=== PATIENT | male | born 1980 | race Two or more races ===

== ENCOUNTER 2018-08-18 23:00 | Inpatient (IN) | payer SELFPAY ==
[~2018-08-18] VITALS: Ht 170.2 cm; Wt 64.4 kg
[2018-08-19] MEDS ORDERED: IV NORMAL SALINE 1000ML BAG 1,000 ML IV ONE (01:15)
[2018-08-19] MEDS ORDERED: fentaNYL PF VIAL 100 MCG/2 ML VIAL IV ONE (01:15)
--- NOTE | 2018-08-19 01:24 | PHYS DOC ---
Past Medical History Past Medical History: No Pertinent History, Diabetes-Type II (Reports being told 2 years ago at hospital, has not taken treatment for it.) Past Surgical History: No Surgical History Smokin Pack Per Day Alcohol Use: Occasionally Drug Use: None Adult General Chief Complaint Chief Complaint: ABDOMINAL PAIN HPI HPI Patient is a 38 year old lithuanian-speaking male, who immigrated from [facility], presents with abdominal pain. He reports abdominal pain onset 2 weeks ago that was located in his epigastric/LUQ area. Today he experienced sudden worsening of his pain and now reports additional pain located in his LLQ and back, w/out CVA tenderness. He describes his pain as squeezing/sharp and rates it a 10/10. He reports his last BM was at 20:00 today and was "normal" for him, and he has experienced flatulence since then. He denies n/v, blood in stool, diarrhea, hematuria, dysuria, constipation, fever/chills, SOB, chest pain, and BATES. 2 years ago the patient reports having been told he had diabetes while hospitalized. He did not seek treatment for it and takes no medications for it. Review of Systems Review of Systems Constitutional: Denies fever or chills Eyes: Denies change in visual acuity, redness, or eye pain HENT: Denies nasal congestion or sore throat Respiratory: Denies cough or shortness of breath Cardiovascular: No additional information not addressed in HPI GI: Admits to abdominal pain. Denies nausea, vomiting, bloody stools or diarrhea : Denies dysuria or hematuria Musculoskeletal:Admits to back pain in the lumbar region Integument: Denies rash or skin lesions All other systems were reviewed and found to be within normal limits, except as documented in this note. Current Medications Current Medications Current Medications Medications (Trade) Dose Ordered Sig/Jeffery Start Time Stop Time Status Last Admin Dose Admin Fentanyl Citrate (Fentanyl 2ml Vial) 50 mcg 1X ONCE 08/19/18 01:15 08/19/18 01:16 DC 08/19/18 01:11 50 MCG Info (CONTRAST GIVEN -- Rx MONITORING) 1 each PRN DAILY PRN 08/19/18 01:30 08/21/18 01:29 Insulin Human Regular (HumuLIN R VIAL) 10 unit 1X ONCE 08/19/18 02:30 08/19/18 02:31 DC 08/19/18 02:39 10 UNIT Iohexol (Omnipaque 300 Mg/ml) 75 ml 1X ONCE 08/19/18 01:30 08/19/18 01:31 DC 08/19/18 02:00 75 ML Morphine Sulfate (Morphine Sulfate) 4 mg PRN Q2HR PRN 08/19/18 02:30 08/20/18 02:29 Ondansetron HCl (Zofran) 4 mg PRN Q8HRS PRN 08/19/18 02:30 08/20/18 02:29 Sodium Chloride 1,000 ml @ 125 mls/hr Q8H 08/19/18 02:15 08/20/18 02:14 Allergies Allergies Allergies Coded Allergies Type Severity Reaction Last Updated Verified No Known Drug Allergies 08/19/18 No Physical Exam Physical Exam Constitutional: Well developed, well nourished, mild distress, non-toxic appearance. HENT: Normocephalic, atraumatic, bilateral external ears normal, oropharynx moist, no oral exudates, nose normal. Eyes: PERRLA, EOMI, conjunctiva normal, no discharge. Neck: Normal range of motion, no tenderness, supple, no stridor. Cardiovascular:Heart rate regular rhythm, no murmur Lungs & Thorax: Bilateral breath sounds clear to auscultation Abdomen: Hypoactive Bowel sounds present in all 4 quadrants, soft, TTP in epigastrium, LUQ, and LLQ, tenderness most severe in LLQ. Skin: Warm, dry, no erythema, no rash. Back: Tenderness at Lumbar spine, no CVA tenderness. Extremities: No tenderness, no cyanosis, no clubbing, ROM intact, no edema. [] Current Patient Data Vital Signs Vital Signs Date Time Temp Pulse Resp B/P (MAP) Pulse Ox O2 Delivery O2 Flow Rate FiO2 08/19/18 01:11 16 08/18/18 23:56 98.0 81 122/80 (94) 96 98.0 Lab Values Laboratory Tests Test 08/19/18 00:30 White Blood Count 5.3 x10^3/uL (4.0-11.0) Red Blood Count 4.34 x10^6/uL (4.30-5.70) Hemoglobin 13.5 g/dL (13.0-17.5) Hematocrit 39.9 % (39.0-53.0) Mean Corpuscular Volume 92 fL (79-100) Mean Corpuscular Hemoglobin 31 pg (25-35) Mean Corpuscular Hemoglobin Concent 34 g/dL (31-37) Red Cell Distribution Width 12.1 % (11.5-14.5) Platelet Count 281 x10^3/uL (140-400) Neutrophils (%) (Auto) 67 % (31-73) Lymphocytes (%) (Auto) 26 % (24-48) Monocytes (%) (Auto) 6 % (0-9) Eosinophils (%) (Auto) 1 % (0-3) Basophils (%) (Auto) 0 % (0-3) Neutrophils # (Auto) 3.6 x10^3uL (1.8-7.7) Lymphocytes # (Auto) 1.4 x10^3/uL (1.0-4.8) Monocytes # (Auto) 0.3 x10^3/uL (0.0-1.1) Eosinophils # (Auto) 0.0 x10^3/uL (0.0-0.7) Basophils # (Auto) 0.0 x10^3/uL (0.0-0.2) Urine Collection Type Unknown Urine Color Yellow Urine Clarity Clear Urine pH 7.5 Urine Specific [place] >=1.030 Urine Protein Negative mg/dL (NEG-TRACE) Urine Glucose (UA) >=1000 mg/dL (NEG) Urine Ketones (Stick) 15 mg/dL (NEG) Urine Blood Negative (NEG) Urine Nitrite Negative (NEG) Urine Bilirubin Negative (NEG) Urine Urobilinogen Dipstick 0.2 mg/dL (0.2 mg/dL) Urine Leukocyte Esterase Negative (NEG) Urine RBC 0 /HPF (0-2) Urine WBC 0 /HPF (0-4) Urine Squamous Epithelial Cells None /LPF Urine Bacteria 0 /HPF (0-FEW) Sodium Level 133 mmol/L (136-145) L Potassium Level 4.5 mmol/L (3.5-5.1) Chloride Level 94 mmol/L (98-107) L Carbon Dioxide Level 29 mmol/L (21-32) Anion Gap 10 (6-14) Blood Urea Nitrogen 13 mg/dL (8-26) Creatinine 0.7 mg/dL (0.7-1.3) Estimated GFR (Cockcroft-Gault) 124.9 BUN/Creatinine Ratio 19 (6-20) Glucose Level 664 mg/dL (70-99) *H Calcium Level 9.0 mg/dL (8.5-10.1) Total Bilirubin 0.2 mg/dL (0.2-1.0) Aspartate Amino Transferase (AST) 45 U/L (15-37) H Alanine Aminotransferase (ALT) 68 U/L (16-63) H Alkaline Phosphatase 81 U/L (46-116) Troponin I Quantitative < 0.017 ng/mL (0.000-0.055) Total Protein 6.7 g/dL (6.4-8.2) Albumin 3.8 g/dL (3.4-5.0) Albumin/Globulin Ratio 1.3 (1.0-1.7) Lipase 927 U/L (73-393) H Urine Opiates Screen Neg (NEG) Urine Methadone Screen Neg (NEG) Urine Barbiturates Neg (NEG) Urine Phencyclidine Screen Neg (NEG) Urine Amphetamine/Methamphetamine Neg (NEG) Urine Benzodiazepines Screen Neg (NEG) Urine Cocaine Screen Neg (NEG) Urine Cannabinoids Screen Neg (NEG) Ethyl Alcohol Level < 10 mg/dL (0-10) Urine Ethyl Alcohol Neg (NEG) Laboratory Tests 08/19/18 00:30 Laboratory Tests 08/19/18 00:30 EKG EKG Normal sinus rhythm rate of 83 no acute ischemic changes noted some borderline ST changes noted inferiorly but no STEMI was seen interpreted by me time of encounter[] Radiology/Procedures Radiology/Procedures [] Impressions: MPRESSION: 1. Large amount of colonic stool burden, patient may be constipated. 2. Distended stomach with ingested food. Clinically correlate with recent ingestion of large meal or gastroparesis. Electronically signed by: Ishan Lazcano DO (08/19/2018 2:44 AM) [facility] DICTATED and SIGNED BY: ISHAN LAZCANO DO DATE: 08/19/18243 Course & Med Decision Making Course & Med Decision Making 38 yo M from [facility] with no reported medical history other than untreated diabetes diagnosed 2 years ago presents with abdominal pain. The pain has been present for 2 weeks but has abruptly became worse earlier today. The pain is rated a 10/10 and he is TTP in epigastrium, LUQ, LLQ. He denies ever experiencing similar symptoms in the past. He denies n/v, diarrhea, constipation , blood in stool, dysuria, fever/chills, and BATES. He has passed bhargavi and had a bowel movement less than 3 hours ago. Ddx Diverticulitis SBO LBO Pancreatitis Cholecystitis PUD Workup CT abd/pelvis EKG CMP CBC Fingerstick glucose LFT's Lipase final plan: pancreatitis, probable gastroparesis, poorly controlled diabetes actually uncontrolled, no dka. admit to [facility] per usual protocol. well Nelli Disclaimer Nelli Disclaimer This electronic medical record was generated, in whole or in part, using a voice recognition dictation system. Departure Departure Impression: Primary Impression: Hyperglycemia Additional Impression: Pancreatitis Disposition: 09 ADMITTED INPATIENT Admitting Physician: Marianela Shankar Condition: STABLE Problem Qualifiers RADHA CHAO MD Aug 19, 2018 01:24
[2018-08-19 01:26] LABS: BASO % 0 % (0-3); EOS % 1 % (0-3); HEMATOCRIT 39.9 % (39.0-53.0); HEMOGLOBIN 13.5 g/dL (13.0-17.5); LYMPH # 1.4 x10^3/uL (1.0-4.8); LYMPH % 26 % (24-48); MEAN CORPUSCULAR HEMOGLOBIN 31 pg (25-35); MEAN CORPUSCULAR HGB CONC 34 g/dL (31-37); MEAN CORPUSCULAR VOLUME 92 fL (79-100); MONO # 0.3 x10^3/uL (0.0-1.1); MONO % 6 % (0-9); NEUT # 3.6 x10^3uL (1.8-7.7); NEUT % 67 % (31-73); PLATELET COUNT 281 x10^3/uL (140-400); RED BLOOD COUNT 4.34 x10^6/uL (4.30-5.70); RED CELL DISTRIBUTION WIDTH 12.1 % (11.5-14.5); WHITE BLOOD COUNT 5.3 x10^3/uL (4.0-11.0)
[2018-08-19 01:27] LABS: BILIRUBIN,URINE NEGATIVE (NEG); CLARITY,URINE CLEAR; COLOR,URINE YELLOW; NITRITE,URINE NEGATIVE (NEG); PH,URINE 7.5; PROTEIN,URINE NEGATIVE (NEG-TRACE); UROBILINOGEN,URINE 0.2 mg/dL (0.2 mg/dL)
[2018-08-19 01:30] LABS: BARBITURATES NEG (NEG); BENZODIAZEPINES NEG (NEG); CANNABINOIDS NEG (NEG); COCAINE NEG (NEG); METHADONE NEG (NEG); OPIATES NEG (NEG); PHENCYCLIDINE NEG (NEG)
[2018-08-19] MEDS ORDERED: CONTRAST GIVEN. MC PRN (01:30)
[2018-08-19] MEDS ORDERED: IOHEXOL 300 MG/ML 100ML VIAL. IV ONE (01:30)
[2018-08-19 01:34] LABS: AMPHETAMINE/METHAMPHETAMINE NEG (NEG)
[2018-08-19 01:41] LABS: BACTERIA,URINE 0 /HPF (0-FEW); RBC,URINE 0 /HPF (0-2); WBC,URINE 0 /HPF (0-4)
[2018-08-19 01:47] LABS: ALBUMIN 3.8 g/dL (3.4-5.0); ALBUMIN/GLOBULIN RATIO 1.3 (1.0-1.7); CREATININE 0.7 mg/dL (0.7-1.3); GFR 124.9; POTASSIUM 4.5 mmol/L (3.5-5.1); TOTAL BILIRUBIN 0.2 mg/dL (0.2-1.0); TOTAL PROTEIN 6.7 g/dL (6.4-8.2)
[2018-08-19] MEDS ORDERED: MORPHINE SULFATE 4 MG/ML VIAL. IV PRN (02:30)
[2018-08-19] MEDS ORDERED: INSULIN REGULAR 100 UNIT/ML 3ML VIAL. IV ONE (02:30)
[2018-08-19] MEDS ORDERED: ONDANSETRON PF 4 MG/2 ML VIAL. IV PRN (02:30)
--- NOTE | 2018-08-19 02:47 | RAD ---
PQRS Compliance statement: One or more of the following individualized dose reduction techniques were utilized for this examination: 1. Automated exposure control. 2. Adjustment of the mA and/or kV according to patient size. 3. Use of iterative reconstruction technique. Indication:luq, llq pain; Omni 300, 75ml TECHNIQUE: CT abdomen and pelvis with IV contrast with multiplanar reformats. COMPARISON: None FINDINGS: Heart is normal in size. No pericardial or pleural effusion. 3 mm nodule in the right middle lobe. Otherwise, clear lung bases. Liver, spleen, gallbladder, pancreas, adrenals and kidneys within normal limits. No free pelvic fluid or ascites. Large amount of colonic stool burden. No abnormally dilated bowel loops. Large amount of fluid material is seen in the stomach. No pneumoperitoneum. The prostate and seminal vesicles show no large mass. Urinary bladder is within normal limits. No suspicious bony lesion. IMPRESSION: 1. Large amount of colonic stool burden, patient may be constipated. 2. Distended stomach with ingested food. Clinically correlate with recent ingestion of large meal or gastroparesis. Electronically signed by: Ishan Lazcano DO (08/19/2018 2:44 AM) [facility]
[2018-08-19] MEDS ORDERED: METOCLOPRAMIDE HCL 10 MG/2 ML VIAL. IV ONE (03:00)
--- NOTE | 2018-08-19 03:30 | NUR ---
ADMISSION NOTE: Patient arrived to room 567 via gurney accompanied by family and ED staff. Patient was able to transfer self to bed with ease. Patient has no complaints at this time. Patient's son present to translate admission questionnaire. No IV pump available on unit so drip rate was calculated to be approximately 42 drops per minute. Roller clamp taped to prevent accidental bolus. Will continue to monitor.
[2018-08-19 04:00] VITALS: BP 106/68
[2018-08-19] MEDS: IV NORMAL SALINE 1000ML BAG 1,000 ML IV SCH ×3 (04:34→22:21)
[2018-08-19 07:00] VITALS: BP 110/67
--- NOTE | 2018-08-19 07:11 | EKG ---
[facility] [address] [place] [address] Test Date: 2018-08-19 Test Time: 01:45:26 Pat Name: BINDU HUMPHREY Department: Room: 567 1 Gender: M Marketing Sales Manager: : 1980 Requested By: RADHA CHAO Order Number: [id number] Reading MD: German Cook MD Measurements Intervals [place] Rate: 83 P: 56 GA: 152 QRS: 45 QRSD: 76 T: -20 QT: 344 QTc: 410 Interpretive Statements SINUS RHYTHM ANTEROSEPTAL INFARCT Electronically Signed On 08-27-2018 23:12:50 CDT by German Cook MD
[2018-08-19 10:57] VITALS: BP 104/70
--- NOTE | 2018-08-19 13:01 | NUR ---
SW following for discharge planning. Discussed with RN, pt is from home with and is Tajik speaking. No SW needs at this time. SW will continue to follow.
[2018-08-19] MEDS ORDERED: DEXTROSE 50% 25 GM / 50ML DISP.SYRIN. IV PRN ×2 (13:30→23:45)
--- NOTE | 2018-08-19 13:32 | PDOC1 ---
History and Physical Date of Admission Date of Admission 08/19/2018 Identification/Chief Complaint Chief Complaint Shanta higgins Source Source: Chart review, Patient History of Present Illness History of Present Illness Patient is a 38-year-old gentleman who was diagnosed with diabetes mellitus type 2 approximately 2 years ago. The patient unfortunately does not have medical insurance and has not been able to fill his medications for quite some time now. Yesterday he received a visit in one of his cousins from [place] [facility] and they were grilling meats and he had a beer and later on in the day the patient started suffering from epigastric pain no radiation to the back sharp in nature that started at about 4-5 out of 10 intensity and progressed to 10 out of 10 with swelling of his abdomen nausea no vomiting no hematemesis no diarrhea was reported. The patient did not self medicated at home and due to the gravity of his symptoms he decided to come to the emergency department for further evaluation treatment. He was diagnosed with pancreatitis given the elevation of lipase noted on his laboratory data and his presentation. He has been currently nothing by mouth since yesterday and seems to be much improved he has regained some of his appetite and he is in no acute distress. Lengthy discussion took place and the importance of maintaining a rigors control and his glycemia and establishing care with a physician on a regular basis. I discussed also the long-term complications of the disease process including nontraumatic amputation blindness end-stage renal disease dialysis among others. He acknowledged understanding of all the instructions plan of care explained in detail all his concerns were addressed to the best of my abilities Past Medical History Endocrine: Diabetes Current Medications Current Medications Current Medications Medications (Trade) Dose Ordered Sig/Jeffery Start Time Stop Time Status Last Admin Dose Admin Fentanyl Citrate (Fentanyl 2ml Vial) 50 mcg 1X ONCE 08/19/18 01:15 08/19/18 01:16 DC 08/19/18 01:11 50 MCG Influenza Virus Vaccine (Afluria Trivalent 0827-1465 Syringe) 0.5 ml ONCE ONCE 08/19/18 09:00 08/19/18 09:01 DC Info (CONTRAST GIVEN -- Rx MONITORING) 1 each PRN DAILY PRN 08/19/18 01:30 08/21/18 01:29 Insulin Human Regular (HumuLIN R VIAL) 10 unit 1X ONCE 08/19/18 02:30 08/19/18 02:31 DC 08/19/18 02:39 10 UNIT Iohexol (Omnipaque 300 Mg/ml) 75 ml 1X ONCE 08/19/18 01:30 08/19/18 01:31 DC 08/19/18 02:00 75 ML Metoclopramide HCl (Reglan Vial) 10 mg 1X ONCE 08/19/18 03:00 08/19/18 03:01 DC 08/19/18 04:33 10 MG Morphine Sulfate (Morphine Sulfate) 4 mg PRN Q2HR PRN 08/19/18 02:30 08/20/18 02:29 Ondansetron HCl (Zofran) 4 mg PRN Q8HRS PRN 08/19/18 02:30 08/20/18 02:29 Sodium Chloride 1,000 ml @ 125 mls/hr Q8H 08/19/18 02:15 08/20/18 02:14 08/19/18 04:34 125 MLS/HR Allergies Allergies Allergies Coded Allergies Type Severity Reaction Last Updated Verified No Known Drug Allergies 08/19/18 No ROS Review of System CONSTITUTIONAL: No fever or chills EYES: No recent changes SKIN: No rash or itching CARDIOVASCULAR: No chest pain, syncope, palpitations, or edema RESPIRATORY: No SOB or cough GASTROINTESTINAL: + nausea, no vomiting + abdominal pain NEUROLOGICAL: No headaches or weakness ENDOCRINE: No cold or heat intolerance GENITOURINARY: No urgency or frequency of urination MUSCULOSKELETAL: No back pain or joint pain LYMPHATICS: No enlarged lymph nodes PSYCHIATRIC: No anxiety or depression Physical Exam Physical Exam GEN.: No apparent distress. Alert and oriented. HEENT: Head is normocephalic, atraumatic NECK: Supple. LUNGS: Clear to auscultation. HEART: RRR, S1, S2 present. Peripheral pulses intact ABDOMEN: Soft, nontender. Positive bowel sounds. EXTREMITIES: Without any cyanosis. NEUROLOGIC: Normal speech, normal tone PSYCHIATRIC: Normal affect, normal mood. SKIN: No ulcerations Vitals Vitals Vital Signs Date Time Temp Pulse Resp B/P (MAP) Pulse Ox O2 Delivery O2 Flow Rate FiO2 08/19/18 10:57 98.0 68 18 104/70 (81) 98 Room Air 98.0 Labs Labs Laboratory Tests Test 08/19/18 00:30 08/19/18 05:55 08/19/18 11:58 White Blood Count 5.3 x10^3/uL (4.0-11.0) Red Blood Count 4.34 x10^6/uL (4.30-5.70) Hemoglobin 13.5 g/dL (13.0-17.5) Hematocrit 39.9 % (39.0-53.0) Mean Corpuscular Volume 92 fL (79-100) Mean Corpuscular Hemoglobin 31 pg (25-35) Mean Corpuscular Hemoglobin Concent 34 g/dL (31-37) Red Cell Distribution Width 12.1 % (11.5-14.5) Platelet Count 281 x10^3/uL (140-400) Neutrophils (%) (Auto) 67 % (31-73) Lymphocytes (%) (Auto) 26 % (24-48) Monocytes (%) (Auto) 6 % (0-9) Eosinophils (%) (Auto) 1 % (0-3) Basophils (%) (Auto) 0 % (0-3) Neutrophils # (Auto) 3.6 x10^3uL (1.8-7.7) Lymphocytes # (Auto) 1.4 x10^3/uL (1.0-4.8) Monocytes # (Auto) 0.3 x10^3/uL (0.0-1.1) Eosinophils # (Auto) 0.0 x10^3/uL (0.0-0.7) Basophils # (Auto) 0.0 x10^3/uL (0.0-0.2) Urine Collection Type Unknown Urine Color Yellow Urine Clarity Clear Urine pH 7.5 Urine Specific [place] >=1.030 Urine Protein Negative mg/dL (NEG-TRACE) Urine Glucose (UA) >=1000 mg/dL (NEG) Urine Ketones (Stick) 15 mg/dL (NEG) Urine Blood Negative (NEG) Urine Nitrite Negative (NEG) Urine Bilirubin Negative (NEG) Urine Urobilinogen Dipstick 0.2 mg/dL (0.2 mg/dL) Urine Leukocyte Esterase Negative (NEG) Urine RBC 0 /HPF (0-2) Urine WBC 0 /HPF (0-4) Urine Squamous Epithelial Cells None /LPF Urine Bacteria 0 /HPF (0-FEW) Sodium Level 133 mmol/L (136-145) Potassium Level 4.5 mmol/L (3.5-5.1) Chloride Level 94 mmol/L (98-107) Carbon Dioxide Level 29 mmol/L (21-32) Anion Gap 10 (6-14) Blood Urea Nitrogen 13 mg/dL (8-26) Creatinine 0.7 mg/dL (0.7-1.3) Estimated GFR (Cockcroft-Gault) 124.9 BUN/Creatinine Ratio 19 (6-20) Glucose Level 664 mg/dL (70-99) Calcium Level 9.0 mg/dL (8.5-10.1) Total Bilirubin 0.2 mg/dL (0.2-1.0) Aspartate Amino Transf (AST/SGOT) 45 U/L (15-37) Alanine Aminotransferase (ALT/SGPT) 68 U/L (16-63) Alkaline Phosphatase 81 U/L (46-116) Troponin I Quantitative < 0.017 ng/mL (0.000-0.055) Total Protein 6.7 g/dL (6.4-8.2) Albumin 3.8 g/dL (3.4-5.0) Albumin/Globulin Ratio 1.3 (1.0-1.7) Lipase 927 U/L (73-393) Urine Opiates Screen Neg (NEG) Urine Methadone Screen Neg (NEG) Urine Barbiturates Neg (NEG) Urine Phencyclidine Screen Neg (NEG) Urine Amphetamine/Methamphetamine Neg (NEG) Urine Benzodiazepines Screen Neg (NEG) Urine Cocaine Screen Neg (NEG) Urine Cannabinoids Screen Neg (NEG) Ethyl Alcohol Level < 10 mg/dL (0-10) Urine Ethyl Alcohol Neg (NEG) Glucose (Fingerstick) 387 mg/dL (70-99) 282 mg/dL (70-99) Laboratory Tests Test 08/19/18 00:30 08/19/18 05:55 08/19/18 11:58 White Blood Count 5.3 x10^3/uL (4.0-11.0) Red Blood Count 4.34 x10^6/uL (4.30-5.70) Hemoglobin 13.5 g/dL (13.0-17.5) Hematocrit 39.9 % (39.0-53.0) Mean Corpuscular Volume 92 fL (79-100) Mean Corpuscular Hemoglobin 31 pg (25-35) Mean Corpuscular Hemoglobin Concent 34 g/dL (31-37) Red Cell Distribution Width 12.1 % (11.5-14.5) Platelet Count 281 x10^3/uL (140-400) Neutrophils (%) (Auto) 67 % (31-73) Lymphocytes (%) (Auto) 26 % (24-48) Monocytes (%) (Auto) 6 % (0-9) Eosinophils (%) (Auto) 1 % (0-3) Basophils (%) (Auto) 0 % (0-3) Neutrophils # (Auto) 3.6 x10^3uL (1.8-7.7) Lymphocytes # (Auto) 1.4 x10^3/uL (1.0-4.8) Monocytes # (Auto) 0.3 x10^3/uL (0.0-1.1) Eosinophils # (Auto) 0.0 x10^3/uL (0.0-0.7) Basophils # (Auto) 0.0 x10^3/uL (0.0-0.2) Urine Collection Type Unknown Urine Color Yellow Urine Clarity Clear Urine pH 7.5 Urine Specific [place] >=1.030 Urine Protein Negative mg/dL (NEG-TRACE) Urine Glucose (UA) >=1000 mg/dL (NEG) Urine Ketones (Stick) 15 mg/dL (NEG) Urine Blood Negative (NEG) Urine Nitrite Negative (NEG) Urine Bilirubin Negative (NEG) Urine Urobilinogen Dipstick 0.2 mg/dL (0.2 mg/dL) Urine Leukocyte Esterase Negative (NEG) Urine RBC 0 /HPF (0-2) Urine WBC 0 /HPF (0-4) Urine Squamous Epithelial Cells None /LPF Urine Bacteria 0 /HPF (0-FEW) Sodium Level 133 mmol/L (136-145) Potassium Level 4.5 mmol/L (3.5-5.1) Chloride Level 94 mmol/L (98-107) Carbon Dioxide Level 29 mmol/L (21-32) Anion Gap 10 (6-14) Blood Urea Nitrogen 13 mg/dL (8-26) Creatinine 0.7 mg/dL (0.7-1.3) Estimated GFR (Cockcroft-Gault) 124.9 BUN/Creatinine Ratio 19 (6-20) Glucose Level 664 mg/dL (70-99) Calcium Level 9.0 mg/dL (8.5-10.1) Total Bilirubin 0.2 mg/dL (0.2-1.0) Aspartate Amino Transf (AST/SGOT) 45 U/L (15-37) Alanine Aminotransferase (ALT/SGPT) 68 U/L (16-63) Alkaline Phosphatase 81 U/L (46-116) Troponin I Quantitative < 0.017 ng/mL (0.000-0.055) Total Protein 6.7 g/dL (6.4-8.2) Albumin 3.8 g/dL (3.4-5.0) Albumin/Globulin Ratio 1.3 (1.0-1.7) Lipase 927 U/L (73-393) Urine Opiates Screen Neg (NEG) Urine Methadone Screen Neg (NEG) Urine Barbiturates Neg (NEG) Urine Phencyclidine Screen Neg (NEG) Urine Amphetamine/Methamphetamine Neg (NEG) Urine Benzodiazepines Screen Neg (NEG) Urine Cocaine Screen Neg (NEG) Urine Cannabinoids Screen Neg (NEG) Ethyl Alcohol Level < 10 mg/dL (0-10) Urine Ethyl Alcohol Neg (NEG) Glucose (Fingerstick) 387 mg/dL (70-99) 282 mg/dL (70-99) VTE Prophylaxis Ordered VTE Prophylaxis Devices: Yes VTE Pharmacological Prophylaxi: No Assessment/Plan Assessment/Plan Abdominal pain secondary to pancreatitis Diabetes mellitus type 2 uncontrolled Pseudohyponatremia Plan: Start clear liquid diet challenge Continue IV fluid resuscitation We'll do hemoglobin A1c and lipase in the a.m. We'll start Lantus insulin tonight Sliding scale Further recommendations based on the clinical course RICO LEUNG MD Aug 19, 2018 13:32
[2018-08-19 15:00] VITALS: BP 120/83
[2018-08-19] MEDS ORDERED: INSULIN LISPRO 300 UNITS/3 ML INSULN.PEN. SQ SCH (17:00)
[2018-08-19] MEDS ORDERED: INSULIN LISPRO 300 UNITS/3 ML INSULN.PEN. SQ ONE (17:45)
[2018-08-19 19:10] VITALS: BP 115/68
[2018-08-19] MEDS ORDERED: INSULIN GLARGINE 300 UNITS/3 ML INSULN.PEN. SQ SCH (21:00)
[2018-08-19 23:10] VITALS: BP 112/73
[2018-08-20] MEDS: INSULIN LISPRO 300 UNITS/3 ML INSULN.PEN. SQ SCH ×6 (00:13→12:22)
[2018-08-20 03:10] VITALS: BP 107/73
[2018-08-20 07:00] VITALS: BP 109/73
[2018-08-20 11:00] VITALS: BP 110/76
[2018-08-20] MEDS ORDERED: METF500T16 PO (13:11)
[2018-08-20] MEDS ORDERED: GLYB2.5T2 PO (13:11)
--- NOTE | 2018-08-20 14:05 | PDOC3 ---
Discharge Summary Visit Information Date of Admission: Aug 19, 2018 Date of Discharge: Aug 20, 2018 Admitting Diagnosis: acute pancreatitis Final Diagnosis Acute pancreatitis DM type 2 uncontrolled Brief Hospital Course Allergies Allergies Coded Allergies Type Severity Reaction Last Updated Verified No Known Drug Allergies 08/19/18 No Vital Signs Vital Signs Date Time Temp Pulse Resp B/P (MAP) Pulse Ox O2 Delivery O2 Flow Rate FiO2 08/20/18 11:00 98.0 65 18 110/76 (87) 98 Room Air 98.0 Lab Results Laboratory Tests Test 08/19/18 00:30 08/19/18 05:55 08/19/18 11:58 08/19/18 17:13 White Blood Count 5.3 x10^3/uL (4.0-11.0) Red Blood Count 4.34 x10^6/uL (4.30-5.70) Hemoglobin 13.5 g/dL (13.0-17.5) Hematocrit 39.9 % (39.0-53.0) Mean Corpuscular Volume 92 fL (79-100) Mean Corpuscular Hemoglobin 31 pg (25-35) Mean Corpuscular Hemoglobin Concent 34 g/dL (31-37) Red Cell Distribution Width 12.1 % (11.5-14.5) Platelet Count 281 x10^3/uL (140-400) Neutrophils (%) (Auto) 67 % (31-73) Lymphocytes (%) (Auto) 26 % (24-48) Monocytes (%) (Auto) 6 % (0-9) Eosinophils (%) (Auto) 1 % (0-3) Basophils (%) (Auto) 0 % (0-3) Neutrophils # (Auto) 3.6 x10^3uL (1.8-7.7) Lymphocytes # (Auto) 1.4 x10^3/uL (1.0-4.8) Monocytes # (Auto) 0.3 x10^3/uL (0.0-1.1) Eosinophils # (Auto) 0.0 x10^3/uL (0.0-0.7) Basophils # (Auto) 0.0 x10^3/uL (0.0-0.2) Urine Collection Type Unknown Urine Color Yellow Urine Clarity Clear Urine pH 7.5 Urine Specific Stow >=1.030 Urine Protein Negative mg/dL (NEG-TRACE) Urine Glucose (UA) >=1000 mg/dL (NEG) Urine Ketones (Stick) 15 mg/dL (NEG) Urine Blood Negative (NEG) Urine Nitrite Negative (NEG) Urine Bilirubin Negative (NEG) Urine Urobilinogen Dipstick 0.2 mg/dL (0.2 mg/dL) Urine Leukocyte Esterase Negative (NEG) Urine RBC 0 /HPF (0-2) Urine WBC 0 /HPF (0-4) Urine Squamous Epithelial Cells None /LPF Urine Bacteria 0 /HPF (0-FEW) Sodium Level 133 mmol/L (136-145) Potassium Level 4.5 mmol/L (3.5-5.1) Chloride Level 94 mmol/L (98-107) Carbon Dioxide Level 29 mmol/L (21-32) Anion Gap 10 (6-14) Blood Urea Nitrogen 13 mg/dL (8-26) Creatinine 0.7 mg/dL (0.7-1.3) Estimated GFR (Cockcroft-Gault) 124.9 BUN/Creatinine Ratio 19 (6-20) Glucose Level 664 mg/dL (70-99) Calcium Level 9.0 mg/dL (8.5-10.1) Total Bilirubin 0.2 mg/dL (0.2-1.0) Aspartate Amino Transf (AST/SGOT) 45 U/L (15-37) Alanine Aminotransferase (ALT/SGPT) 68 U/L (16-63) Alkaline Phosphatase 81 U/L (46-116) Troponin I Quantitative < 0.017 ng/mL (0.000-0.055) Total Protein 6.7 g/dL (6.4-8.2) Albumin 3.8 g/dL (3.4-5.0) Albumin/Globulin Ratio 1.3 (1.0-1.7) Lipase 927 U/L (73-393) Urine Opiates Screen Neg (NEG) Urine Methadone Screen Neg (NEG) Urine Barbiturates Neg (NEG) Urine Phencyclidine Screen Neg (NEG) Urine Amphetamine/Methamphetamine Neg (NEG) Urine Benzodiazepines Screen Neg (NEG) Urine Cocaine Screen Neg (NEG) Urine Cannabinoids Screen Neg (NEG) Ethyl Alcohol Level < 10 mg/dL (0-10) Urine Ethyl Alcohol Neg (NEG) Glucose (Fingerstick) 387 mg/dL (70-99) 282 mg/dL (70-99) 540 mg/dL (70-99) Test 08/19/18 22:30 08/20/18 04:05 08/20/18 06:00 08/20/18 07:53 Glucose (Fingerstick) 423 mg/dL (70-99) 272 mg/dL (70-99) 266 mg/dL (70-99) Lipase 146 U/L (73-393) Test 08/20/18 11:15 Glucose (Fingerstick) 212 mg/dL (70-99) Laboratory Tests Test 08/19/18 17:13 08/19/18 22:30 08/20/18 04:05 08/20/18 06:00 Glucose (Fingerstick) 540 mg/dL (70-99) 423 mg/dL (70-99) 272 mg/dL (70-99) Lipase 146 U/L (73-393) Test 08/20/18 07:53 08/20/18 11:15 Glucose (Fingerstick) 266 mg/dL (70-99) 212 mg/dL (70-99) Brief Hospital Course Patient is a 38-year-old gentleman who was diagnosed with diabetes mellitus type 2 approximately 2 years ago. The patient unfortunately does not have medical insurance and has not been able to fill his medications for quite some time now. Yesterday he received a visit in one of his cousins from his crow [facility] and they were grilling meats and he had a beer and later on in the day the patient started suffering from epigastric pain no radiation to the back sharp in nature that started at about 4-5 out of 10 intensity and progressed to 10 out of 10 with swelling of his abdomen nausea no vomiting no hematemesis no diarrhea was reported. The patient did not self medicated at home and due to the gravity of his symptoms he decided to come to the emergency department for further evaluation treatment. He was diagnosed with pancreatitis given the elevation of lipase noted on his laboratory data and his presentation. He has been currently nothing by mouth since yesterday and seems to be much improved he has regained some of his appetite and he is in no acute distress. Lengthy discussion took place and the importance of maintaining a rigors control and his glycemia and establishing care with a physician on a regular basis. I discussed also the long-term complications of the disease process including nontraumatic amputation blindness end-stage renal disease dialysis among others. Hospital stay was uneventful. The patient is placed on long-acting insulin sliding scale notes to control his hyperglycemia. Patient unfortunately due to constraints in his by just and not having insurance patient has not been able to establish care to address his diabetes. Extensive counseling was done while he was inpatient regarding nutrition and importance of establishing care. I have also recommended him to check his glycemia at least once a day and to obtain a glucometer. Social work will provide him with resources in the community for folks that don't have medical insurance and require medical assistance. The patient was able to tolerate he's diet and he was pain-free at the time of the departure, patient's symptoms improved quite rapidly all of his concerns were addressed to the best of my abilities Lungs were clear to auscultation bilaterally with good inspiratory effort Cardiovascular S1-S2 regular rhythm no murmurs calls or rubs Abdomen soft nontender bowel sounds present no hepatosplenomegaly appreciated Discharge Information Condition at Discharge: Improved Follow Up: Weeks Disposition/Orders: D/C to Home Scheduled Glyburide (Glyburide) 2.5 Mg Tablet, 1 TAB PO BID for dm 2, #60 Ref 3 Prescribed by: RICO LEUNG MD on 08/20/18 1311 Metformin Hcl (Metformin Hcl) 500 Mg Tablet, 500 MG PO BIDWMEALS for ANTI- DIABETIC for 30 Days, #60 Ref 3 Prescribed by: RICO LEUNG MD on 08/20/18 1311 RICO LEUNG MD Aug 20, 2018 14:05
[2018-08-20 14:31] VITALS: BP 116/72
--- NOTE | 2018-08-20 15:21 | NUR ---
SW following. Discussed with RN. SW met with pt to give self pay resources. SW used the [employer] phone to speak with pt. Pt denied any further SW needs. RN notified.
--- NOTE | 2018-08-20 17:16 | NUR ---
Discharge Note: JEREMIAS HUMPHREY [facility] Discharge instructions and discharge home medications reviewed with Patient and a copy given. All questions have been answered and understanding verbalized. The following instructions and handouts were given: Diabetes, Pancreatitis. [employer] line was used to provide discharge teaching Discontinued lines and drains: Peripheral IV, Right Forearm. Catheter intact. Patient discharged to Home with Self-Care via Spouse Private Vehicle
[2018-08-21 04:17] LABS: HEMOGLOBIN A1C >15.5 % (4.8-5.6)
== END 2018-08-20 17:18 | disposition home or self-care (01) | DRG 439 ==
LOC: ER 23:00 → 5 SOUTH 08-19 02:10
PROVIDERS: ADMIT Internal Medicine; ATTEND Internal Medicine
DX: K85.90 Acute pancreatitis without necrosis or infection, unspecified (principal); E87.1 Hypo-osmolality and hyponatremia; E11.65 Type 2 diabetes mellitus with hyperglycemia; Z87.891 Personal history of nicotine dependence
CPT/HCPCS: 36415; 74177; 80053; 80307; 81001; 82962; 83036; 83690; 84484; 85025; 90471; 90756; 93005; 96361; 96374; 99406; G0480; J1815; J2765; J3010; J7030; Q9967; 99285-25; Q2035